=== PATIENT | female | born 1985 | race Caucasian/White ===

== ENCOUNTER → 2016-11-11 | Outpatient (CLI) | payer BC | LOC: MW.CHOBGYN 08:54 | PROVIDERS: ATTEND Nurse Practitioner Women's Health | DX: L30.9 Dermatitis, unspecified (principal) | CPT/HCPCS: 36415; 84402; 84703 ==

== ENCOUNTER → 2017-01-09 | Day surgery (SDC) | payer BC ==
[2017-01-08 11:20] LABS: CHLORIDE,CL 103 mmol/L (98-110); SODIUM,NA 139 mmol/L (136-146)
[~2017-01-09] MED LIST: Lactated Ringers 1,000 ML IV SCH; Sodium Chloride 0.9% 10 ML Syringe FLUSH PRN; Sodium Chloride 0.9% 2.5 ML Syringe FLUSH PRN
== END ==
LOC: MW.SDS 11:30
PROVIDERS: ATTEND Obstetrics & Gynecology
DX: R10.2 Pelvic and perineal pain (principal)
CPT/HCPCS: 36415; 80048; 84703; 85027; 86850; 86900; 86901

== ENCOUNTER 2017-01-21 10:30 | Day surgery (SDC) | payer BC ==
[~2017-01-21 10:30] MED LIST changes: +Bupivacaine 0.25% 10 ML SDV ONE; -Lactated Ringers 1,000 ML IV SCH; +Methylene Blue 50 MG/10 ML Ampule ONE; -Sodium Chloride 0.9% 10 ML Syringe FLUSH PRN; -Sodium Chloride 0.9% 2.5 ML Syringe FLUSH PRN
[2017-01-21] MEDS ORDERED: Midazolam 1 MG/ML 2 ML SDV ONE (10:58)
[2017-01-21] MEDS ORDERED: fentaNYL 250 MCG/5 ML SDV ONE (10:58)
[2017-01-21] MEDS ORDERED: Ondansetron 4 MG/2 ML SDV ONE (10:58)
[2017-01-21] MEDS ORDERED: Propofol 200 MG/20 ML SDV ONE (10:58)
[2017-01-21] MEDS ORDERED: Lactated Ringers 1,000 ML IV SCH (11:00)
--- NOTE | 2017-01-21 11:22 | PCM.PREANE ---
Preanesthetic Assessment - Anesthesia/Transfusion/Family Hx Anesthesia History: Prior Anesthesia Without Reaction Family History of Anesthesia Reaction: No Transfusion History: No Prior Transfusion(s) Intubation History: Unknown - Review of Systems General: No Symptoms Pulmonary: No Symptoms Cardiovascular: No Symptoms Gastrointestinal: No Symptoms Neurological: No Symptoms Other: Reports: None - Physical Assessment O2 Sat by Pulse Oximetry: 100 Respiratory Rate: 16 Vital Signs: Last Vital Signs Temp 36.6 C 01/21/17 10:50 Pulse 75 01/21/17 10:50 Resp 16 01/21/17 10:50 BP 145/90 H 01/21/17 10:50 Pulse Ox 100 01/21/17 10:50 Height: 1.65 m Weight: 59.874 kg ASA Class: 2 Mental Status: Alert & Oriented x3 Airway Class: Mallampati = 2 Dentition: Reports: Normal Dentition, Broken Tooth/Teeth (bonded front upper incisor) Thyro-Mental Finger Breadths: 3 Mouth Opening Finger Breadths: 3 ROM/Head Extension: Full Lungs: Clear to Auscultation, Normal Respiratory Effort Cardiovascular: Regular Rate, Regular Rhythm - Allergies Allergies/Adverse Reactions: Allergies Allergy/AdvReac Type Severity Reaction Status Date / Time latex Allergy Itching Verified 01/20/17 08:30 Penicillins Allergy Rash Verified 01/07/17 10:18 shellfish derived Allergy Anaphylactic Verified 01/17/17 07:43 Shock - Blood Blood Available: No - Anesthesia Plan Pre-Op Medication Ordered: None - Acknowledgements Anesthesia Type Planned: General Anesthesia Pt an Appropriate Candidate for the Planned Anesthesia: Yes Alternatives and Risks of Anesthesia Discussed w Pt/Guardian: Yes Pt/Guardian Understands and Agrees with Anesthesia Plan: Yes PreAnesthesia Questionnaire Genitourinary History: Reports: Other (See Below) (h/o pyelonephritis) 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, , Other (See Below) (h/o overian cysts) Other OB/BYN History: elective Musculoskeletal History: Reports: Back Pain, Chronic, Fracture Other Musculoskeletal History: hx fx femur Neurological History: Reports: Concussion Psychiatric History: Reports: ADHD, Anxiety Endocrine/Metabolic History: Reports: Other (See Below) (fibrocystic breasts) - Past Surgical History Head Surgeries/Procedures: Reports: None Female Surgical History: Reports: Breast Biopsy (left breast) - SUBSTANCE USE Smoking Status *Q: Never Smoker Recreational Drug Use History: No - HOME MEDS Home Medications: Home Meds Dextroamphetamine/Amphetamine [Adderall] 40 mg PO DAILY 01/07/17 [History] Cyclobenzaprine [Flexeril] 1 tab PO ASDIRECTED PRN 01/17/17 [History] EPINEPHrine [Epipen] 1 injection SUBCUT ASDIRECTED PRN 01/17/17 [History] Flexeril Transdermal 1 patch TRDERM ASDIRECTED PRN 01/17/17 [History] Naproxen Sodium [Aleve] 2 tab PO ASDIRECTED PRN 01/17/17 [History] - CURRENT (IN HOUSE) MEDS Current Meds: Current Medications Lactated Ringer's (Ringers, Lactated) 1,000 mls @ 125 mls/hr IV ASDIRECTED DIPTI Discontinued Medications Bupivacaine HCl (Sensorcaine-Mpf 0.25%) Confirm Administered Dose 20 ml .ROUTE .STK-MED ONE Stop: 01/20/17 15:22 Fentanyl (Sublimaze) Confirm Administered Dose 250 mcg .ROUTE .STK-MED ONE Stop: 01/21/17 10:59 Lidocaine HCl (Xylocaine-Mpf 1%) Confirm Administered Dose 5 ml .ROUTE .STK-MED ONE Stop: 01/21/17 10:59 Methylene Blue (Provayblue) Confirm Administered Dose 50 mg .ROUTE .STK-MED ONE Stop: 01/20/17 15:24 Midazolam HCl (Versed 1 Mg/Ml) Confirm Administered Dose 2 mg .ROUTE .STK-MED ONE Stop: 01/21/17 10:59 Ondansetron HCl (Zofran) Confirm Administered Dose 4 mg .ROUTE .STK-MED ONE Stop: 01/21/17 10:59 Propofol (Diprivan 20 Ml) Confirm Administered Dose 200 mg .ROUTE .STK-MED ONE Stop: 01/21/17 10:59
[2017-01-21] MEDS ORDERED: Ketorolac 30 MG/ML SDV ONE (12:13)
[2017-01-21] MEDS ORDERED: Neostigmine Methylsulfate 1 MG/ML 5 ML Syringe ONE (12:13)
[2017-01-21] MEDS ORDERED: fentaNYL 100 MCG/2 ML SDV ONE (13:18)
[2017-01-21] MEDS: fentaNYL 100 MCG/2 ML SDV IVPUSH PRN ×2 (13:20→13:25)
--- NOTE | 2017-01-21 13:31 | PCM.OPNOTE ---
- General Post-Op/Procedure Note Date of Surgery/Procedure: 01/21/17 Operative Procedure(s): diagnostic laparoscopy with peritoneal biopsy and chromopertubation Findings: Bilateral tubes are patent, there is a red implant on the left uterosacral ligment, in the posterior cul de sac there is an Aron Masters window, bialteral tubes and ovaries appear normal. There are no hernias, normal appearing liver, gallbladder, and appendix Pre Op Diagnosis: pelvic pain Post-Op Diagnosis: Same and Stage II endometriosis Anesthesia Technique: General ET Tube Primary Surgeon: Lizbeth Joyce Anesthesia Provider: Sachin Piña Commercial Glazier: Moises Galindo Pathology: left uterosacral ligament biopsy. Fluid Replacement, Intraop: 1,000 EBL in mLs: 10 Complications: None Known Condition: Good
--- NOTE | 2017-01-21 14:01 | PCM.POSTAN ---
POST ANESTHESIA ASSESSMENT - MENTAL STATUS Mental Status: Alert, Oriented - RESPIRATORY Respiratory Status: Respiratory Rate WNL, Airway Patent, O2 Saturation Stable - CARDIOVASCULAR CV Status: Pulse Rate WNL, Blood Pressure Stable - GASTROINTESTINAL GI Status: No Symptoms - PAIN Pain Score: 2 - POST OP HYDRATION Hydration Status: Adequate & Stable - OBSERVATIONS Free Text/Narrative:: no anesthesia problems
[2017-01-21 14:28] VITALS: BP 103/66
--- NOTE | 2017-01-21 19:05 | OR ---
SURGEON: Lizbeth Joyce M.D. DATE OF PROCEDURE: 01/21/2017 PREOPERATIVE DIAGNOSIS: Pelvic pain. POSTOPERATIVE DIAGNOSES: Pelvic pain and stage I endometriosis. DYNAMO REPAIRER: Chante Fletcher, MS-3. ANESTHESIA: General endotracheal. FLUIDS: 1000 mL crystalloid. ESTIMATED BLOOD LOSS: 10 mL. FINDINGS: The uterus is anteverted and approximately 6-week size. Bilateral tubes and ovaries appeared normal. On chromopertubation bilateral tubes are patent. Liver, gallbladder, and appendix appeared normal. There were no pelvic adhesions. There was no evidence of any hernia. On the left uterosacral ligament, there was a single implant of a dark red lesion suggesting endometriosis also on the posterior cul-de-sac there was an Aron Masters window. The lesion was biopsied. COMPLICATIONS: None known. DISPOSITION: Stable to recovery. BRIEF HISTORY: This is a 31-year-old female. She has a long history of dysmenorrhea and pelvic pain. She presents for evaluation. Pain is primarily on the left side. It is stabbing, jabbing in the groin area and in the lower pelvis and abdomen. She has not had a colonoscopy to this point. She presents for further evaluation to consider endometriosis by laparoscopy with risks discussed including bleeding, infection, injury to bowel, bladder, blood vessels, or other organs, risk of thromboembolic event, and risk of anesthesia. Understanding all of these risks, she does desire to proceed. DESCRIPTION OF PROCEDURE: With the patient in dorsal lithotomy position, under adequate general endotracheal anesthesia, the abdomen was prepped with chlorhexidine. The vagina was prepped with the Zephiran due to iodine allergy. The patient was draped in the usual fashion for laparoscopic surgery. SCDs were in place and the bladder had been drained with a straight catheter. After an appropriate time-out was held, bimanual examination revealed the uterus to be slightly deviated towards the left side with some nodularity to the left uterosacral ligament. It was otherwise mobile with no adnexal masses. Speculum was placed into the vagina. The cervix was dilated to accept the ZUMI uterine manipulator which was placed. The balloon was filled with air. Psychologist's gloves were changed. Attention was then turned abdominally where 3 mL of 0.25% Marcaine were injected inferior to the umbilicus and the #11 blade scalp was used to make a 5 mm incision. The anterior abdominal wall was elevated. Veress needle was inserted. Opening pressure was 3 mmHg. Hanging drop test showed positive intraperitoneal placement. CO2 was insufflated to develop an adequate pneumoperitoneum of 13 mmHg. The 5 mm port was then placed. The laparoscope was placed into the abdominal cavity. There was no evidence of any trauma to the organs beneath the placement site. Therefore 2 additional ports were placed, 2 cm medial and cephalad from the anterior superior iliac spine on the right and the left under direct visualization. Using Marcaine, #11 blade scalpel, and placing a 5-mm port under direct visualization, the uterus was elevated and pictures were obtained. Findings were as noted above. The lesion on the left uterosacral ligament was biopsied. Chromopertubation was performed with copious flow of blue dye from both tubes without any hesitation. This being completed, the abdomen was desufflated. The ports were removed and the skin was closed with a subcuticular suture of 3-0 Monocryl. The ZUMI manipulator was removed from the cervix. Final sponge, needle, and instrument counts were reported as correct. There were no known complications. The patient was transferred to recovery in good condition. J CARLOS CEE /[id number]
== END 2017-01-21 15:25 | disposition home or self-care (01) ==
LOC: MW.SDS 10:30
PROVIDERS: ATTEND Obstetrics & Gynecology
DX: R10.2 Pelvic and perineal pain (principal); Z88.0 Allergy status to penicillin; Z91.040 Latex allergy status; Z91.013 Allergy to seafood; Z79.899 Other long term (current) drug therapy; Z98.890 Other specified postprocedural states
CPT/HCPCS: 49321; 58350; J1885; J2250; J2405; J3010; 00840; 88305; J2704